=== PATIENT | male | born 1990 | race Two or more races ===

== ENCOUNTER 2021-10-11 08:18 | Emergency (ER) | payer OTHER ==
[~2021-10-11] VITALS: Ht 193 cm; Wt 143.3 kg
[2021-10-11 09:06] VITALS: BP 127/88
[2021-10-11] MEDS ORDERED: CEPH500C PO (09:11)
== END 2021-10-11 09:27 | disposition home or self-care (01) ==
LOC: ER 08:18
DX: N48.1 Balanitis (principal); Z90.49 Acquired absence of other specified parts of digestive tract; Z79.899 Other long term (current) drug therapy; Z88.0 Allergy status to penicillin; Z88.6 Allergy status to analgesic agent